=== PATIENT | female | born 1940 | race Hispanic/Latino ===

== ENCOUNTER 2016-12-24 09:00 | Inpatient (IN) | payer MEDICARE, OTHER ==
[2016-12-24 09:01] VITALS: BMI 31.8
[2016-12-24 09:29] LABS: BASO % 0.4 % (0.0-2.0); EOS % 0.5 % (0.0-4.0); HEMATOCRIT 38.9 % (34.0-47.0); LYMPH # 1.3 K/uL (1.0-4.3); LYMPH % 21.8 % (20.0-40.0); MEAN CELL VOLUME 90.2 fL (81.0-99.0); MEAN CORPUSCULAR HEMOGLOBIN 29.8 pg (27.0-31.0); MEAN PLATELET VOLUME 7.9 fL (7.2-11.7); MONO # 0.4 K/uL (0.0-0.8); MONO % 6.2 % (0.0-10.0); RED CELL DISTRIBUTION WIDTH 14.8 % (11.5-14.5); WHITE BLOOD COUNT 5.9 K/uL (4.8-10.8)
--- NOTE | 2016-12-24 09:35 | C.PDOC ---
History Of Present Illness 76 yr old female, accompanied in by daughter, presents to [facility] ER with complaints of feeling dizzy and off balance since 3am today. Patient states its associated with mild chest discomfort. Reports the dizziness is better when she sits still and made worse with movement. Patient denies previous history of similar symptoms, fever, chills, SOB, nausea, vomiting, focal weakness or numbness. Time Seen by Provider: 12/24/16 09:07 Chief Complaint (Nursing): Chest Pain History Per: Patient History/Exam Limitations: no limitations Onset/Duration Of Symptoms: Sudden Onset (3am today) Current Symptoms Are (Timing): Still Present Past Medical History Reviewed: Historical Data, Nursing Documentation, Vital Signs Vital Signs: Last Vital Signs Temp 97.7 F 12/24/16 14:50 Pulse 89 12/24/16 14:50 Resp 20 12/24/16 14:50 BP 142/80 12/24/16 14:50 Pulse Ox 97 12/24/16 14:50 - Medical History PMH: Anxiety, Arthritis, Asthma, Bronchitis, CHF, Gastritis, HTN, Hypercholesterolemia, Hypothyroidism, Peripheral Edema Surgical History: Appendectomy - [facility] Procedures ESOPHAGOGASTRODUODENOSCOPY [EGD] W/CLOSED BIOPSY (07/26/14) EXTRACTION OF TOE NAIL, EXTERNAL APPROACH (10/24/15) Family History: States: No Known Family Hx - Social History Hx Tobacco Use: No Hx Alcohol Use: No Hx Substance Use: No - Immunization History Hx Tetanus Toxoid Vaccination: No Hx Influenza Vaccination: No Hx Pneumococcal Vaccination: No Review Of Systems Except As Marked, All Systems Reviewed And Found Negative. Constitutional: Negative for: Fever, Chills Cardiovascular: Positive for: Other ((+) Mild chest discomfort) Respiratory: Negative for: Shortness of Breath Gastrointestinal: Negative for: Nausea, Vomiting Neurological: Positive for: Dizziness. Negative for: Weakness, Numbness Physical Exam - Physical Exam Appears: Non-toxic, No Acute Distress Skin: Warm, Dry, No Rash Head: Atraumatic, Normacephalic Eye(s): bilateral: PERRL, Other (Horizontal nystagmus.) Oral Mucosa: Moist Neck: Normal, Normal ROM, Supple Cardiovascular: Rhythm Regular, No Murmur Respiratory: Normal Breath Sounds, No Rales, No Rhonchi, No Stridor, No Wheezing Neurological/Psych: Oriented x3, Normal Speech, Normal Motor ED Course And Treatment - Laboratory Results Result Diagrams: 12/24/16 09:24 12/24/16 09:24 ECG: Interpreted By Me, Viewed By Me ECG Rhythm: Sinus Rhythm ECG Interpretation: Normal Interpretation Of ECG: RBBB. Q wave in leave [address]/T wave abnormalities. Rate From EC (BPM) O2 Sat by Pulse Oximetry: 100 (RA) Pulse Ox Interpretation: Normal - Other Rad CXR X-Ray: Viewed By Me, Read By Radiologist Interpretation: PROCEDURE: CHEST RADIOGRAPH, 1 VIEW. HISTORY: chest pain. COMPARISON: 03/17/2016. FINDINGS: LUNGS: Shallow lung volumes - crowd the bronchovascular marking appearance. No consolidation suggested. PLEURA: No pneumothorax or pleural fluid seen. CARDIOVASCULAR: Top-normal heart size. Carotid bronchovascular marking appearance per shallow lung volumes. OSSEOUS STRUCTURES: Thoracic spondylosis. Bilateral shoulder arthrosis. VISUALIZED UPPER ABDOMEN: Normal. OTHER FINDINGS: None. IMPRESSION: Shallow lung volumes. Allowing for this no suspect pulmonary venous congestion believed present. No consolidation suggested - CT Scan/US CT - Head Other Rad Studies (CT/US): Read By Radiologist, Radiology Report Reviewed CT/US Interpretation: PROCEDURE: CT HEAD WITHOUT CONTRAST. HISTORY: dizziness. COMPARISON: 10/08/2014 no evidence of acute infarct. TECHNIQUE: Axial computed tomography images were obtained through the head/brain without intravenous contrast. Radiation dose: Total exam DLP = 919.83 mGy-cm. This CT exam was performed using one or more of the following dose reduction techniques: Automated exposure control, adjustment of the mA and/or kV according to patient size, and/or use of iterative reconstruction technique. FINDINGS: HEMORRHAGE: No intracranial hemorrhage. BRAIN: No mass effect or edema. Mild diffuse age-appropriate cerebral atrophy. Mild periventricular white matter lucency with patchy and confluent foci of deep and subcortical white matter lucency consistent with age related microvascular ischemic change. No significant change from prior examination. VENTRICLES: Unremarkable. No hydrocephalus. CALVARIUM: Unremarkable. PARANASAL SINUSES: Unremarkable as visualized. No significant inflammatory changes. MASTOID AIR CELLS: Unremarkable as visualized. No inflammatory changes. OTHER FINDINGS: None. IMPRESSION: No intracranial mass, hemorrhage or evidence of acute infarct. Age -appropriate involutional change. Medical Decision Making Medical Decision Making: IMPRESSION: PLAN: * CT - Head * CXR * EKG * Troponin * CBC * CMP * BNP * Urinalysis * Meclizine PO * Pepcid IVP NOTE: * DR. Calixto at bedside to evaluate patient and would like patient to be placed in Telemetry Obs. Disposition Discussed With : Joe Calixto Doctor Will See Patient In The: Hospital Counseled Patient/Family Regarding: Studies Performed, Diagnosis - Disposition Disposition: HOSPITALIZED Disposition Time: 12:38 Condition: FAIR - Clinical Impression Clinical Impression: Ataxia, Dizziness - Scribe Statement The provider has reviewed the documentation as recorded by the Cookie Bliss Provider Attestation: All medical record entries made by the Cookie were at my direction and personally dictated by me. I have reviewed the chart and agree that the record accurately reflects my personal performance of the history, physical exam, medical decision making, and the department course for this patient. I have also personally directed, reviewed, and agree with the discharge instructions and disposition.
[2016-12-24 09:39] LABS: ALB/GLOB RATIO 1.6 (1.0-2.1); ALKALINE PHOSPHATASE 74 U/L (38-126); ALT/SGPT 30 U/L (9-52); AST/SGOT 22 U/L (14-36); BLOOD UREA NITROGEN 16 mg/dL (7-17); CALCIUM 8.3 mg/dl (8.6-10.4); CARBON DIOXIDE 26 mmol/L (22-30); CHLORIDE 102 mmol/L (98-107); GFR AFRICAN-AMERICAN > 60; GLUCOSE,RANDOM 92 mg/dL (65-105); POTASSIUM 4.2 mmol/L (3.6-5.2); SODIUM 136 mmol/L (132-148); TOTAL PROTEIN 6.6 g/dL (6.3-8.3)
--- NOTE | 2016-12-24 10:02 | RAD ---
PROCEDURE: CHEST RADIOGRAPH, 1 VIEW HISTORY: chest pain COMPARISON: 03/17/2016 FINDINGS: LUNGS: Shallow lung volumes - crowd the bronchovascular marking appearance. No consolidation suggested PLEURA: No pneumothorax or pleural fluid seen. CARDIOVASCULAR: Top-normal heart size. Carotid bronchovascular marking appearance per shallow lung volumes. OSSEOUS STRUCTURES: Thoracic spondylosis. Bilateral shoulder arthrosis. VISUALIZED UPPER ABDOMEN: Normal. OTHER FINDINGS: None. IMPRESSION: Shallow lung volumes. Allowing for this no suspect pulmonary venous congestion believed present. No consolidation suggested
--- NOTE | 2016-12-24 10:19 | CT ---
PROCEDURE: CT HEAD WITHOUT CONTRAST. HISTORY: dizziness COMPARISON: 10/08/2014 no evidence of acute infarct. TECHNIQUE: Axial computed tomography images were obtained through the head/brain without intravenous contrast. Radiation dose: Total exam DLP = 919.83 mGy-cm. This CT exam was performed using one or more of the following dose reduction techniques: Automated exposure control, adjustment of the mA and/or kV according to patient size, and/or use of iterative reconstruction technique. FINDINGS: HEMORRHAGE: No intracranial hemorrhage. BRAIN: No mass effect or edema. Mild diffuse age-appropriate cerebral atrophy. Mild periventricular white matter lucency with patchy and confluent foci of deep and subcortical white matter lucency consistent with age related microvascular ischemic change. No significant change from prior examination. VENTRICLES: Unremarkable. No hydrocephalus. CALVARIUM: Unremarkable. PARANASAL SINUSES: Unremarkable as visualized. No significant inflammatory changes. MASTOID AIR CELLS: Unremarkable as visualized. No inflammatory changes. OTHER FINDINGS: None. IMPRESSION: No intracranial mass, hemorrhage or evidence of acute infarct. Age-appropriate involutional change.
[2016-12-24 12:37] LABS: URINE BILIRUBIN NEGATIVE (NEGATIVE); URINE BLOOD NEGATIVE (NEGATIVE); URINE COLOR Yellow (YELLOW); URINE GLUCOSE (UA) NORMAL (Normal); URINE KETONE NEGATIVE (NEGATIVE); URINE LEUKOCYTE ESTERASE NEG Leu/uL (Negative); URINE PROTEIN NEGATIVE (NEGATIVE); URINE UROBILINOGEN NORMAL mg/dL (0.2-1.0); WBC URINE 1 /hpf (0-5)
[2016-12-24] MEDS: Enoxaparin 40 mg Syringe SC SCH (13:55)
[2016-12-24] MEDS: Pantoprazole 40 mg EC Tab PO SCH (13:56)
--- NOTE | 2016-12-24 16:13 | CP.PCM.CON ---
History of Present Illness - History of Present Illness History of Present Illness: Mrs. Virk is a 76-year-old woman with a past medical history of anxiety, depression, CHF, HTN, dyslipidemia, hypothyroidism, gastritis, who states that last night at around 3 AM, she got up to go to the bathroom, when she developed the sensation of dizziness and then felt that she had instability in her gait. She had difficulty with balance, but did not notice that she was falling to any one side. She did not have a fall. This incident lasted for several minutes and then seemed to subside. However, she continues to feel that she is not quite her normal self when she is walking even today. Review of Systems - Review of Systems All systems: reviewed and no additional remarkable complaints except Past Patient History - Infectious Disease Hx of Infectious Diseases: None - Tetanus Immunizations Tetanus Immunization: Unknown - Past Medical History & Family History Past Medical History?: Yes - Past Social History Smoking Status: Never Smoked - CARDIAC Hx Congestive Heart Failure: Yes Hx Hypercholesterolemia: Yes Hx Hypertension: Yes Hx Peripheral Edema: Yes - PULMONARY Hx Asthma: Yes Hx Bronchitis: Yes - NEUROLOGICAL Hx Neurological Disorder: No - HEENT Hx Cataracts: No - RENAL Hx Chronic Kidney Disease: No - ENDOCRINE/METABOLIC Hx Hypothyroidism: Yes - HEMATOLOGICAL/ONCOLOGICAL Hx Blood Disorders: No - INTEGUMENTARY Hx Dermatological Problems: No - MUSCULOSKELETAL/RHEUMATOLOGICAL Hx Arthritis: Yes - GASTROINTESTINAL Hx Gastritis: Yes - GENITOURINARY/GYNECOLOGICAL Hx Genitourinary Disorders: Yes Hx Incontinence: Yes - PSYCHIATRIC Hx Anxiety: Yes Hx Substance Use: No - SURGICAL HISTORY Hx Appendectomy: Yes - ANESTHESIA Hx Anesthesia: Yes Hx Anesthesia Reactions: Yes (SLUGGISH TO WAKE UP) Hx Malignant Hyperthermia: No Has any member of the family had a problem w/ anesthesia?: No Meds Allergies/Adverse Reactions: Allergies Allergy/AdvReac Type Severity Reaction Status Date / Time azithromycin Allergy Severe SHORTNESS Verified 03/14/16 22:10 OF BREATH clarithromycin [From Biaxin] Allergy SHORTNESS Verified 03/14/16 22:10 OF BREATH Penicillins Allergy SHORTNESS Verified 03/14/16 22:10 OF BREATH - Medications Medications: Current Medications Aspirin (Ecotrin) 81 mg PO DAILY [facility] Last Admin: 12/24/16 13:56 Dose: 81 mg Carvedilol (Coreg) 6.25 mg PO BID [facility] Enoxaparin Sodium (Lovenox) 40 mg SC DAILY [facility] Last Admin: 12/24/16 13:55 Dose: 40 mg Furosemide (Lasix) 20 mg PO DAILY [facility] Last Admin: 12/24/16 13:56 Dose: Not Given Levothyroxine Sodium (Synthroid) 150 mcg PO DAILY@0630 [facility] Lorazepam (Ativan) 0.5 mg PO BID PRN PRN Reason: Agitation Losartan Potassium (Cozaar) 25 mg PO DAILY [facility] Last Admin: 12/24/16 14:55 Dose: 25 mg Meclizine HCl (Antivert) 12.5 mg PO BID [facility] Nortriptyline HCl (Pamelor) 25 mg PO DAILY [facility] Last Admin: 12/24/16 13:56 Dose: 25 mg Pantoprazole Sodium (Protonix Ec Tab) 40 mg PO DAILY [facility] Last Admin: 12/24/16 13:56 Dose: Not Given Physical Exam - Constitutional Appears: Well - Head Exam Head Exam: ATRAUMATIC, NORMAL INSPECTION, NORMOCEPHALIC - Eye Exam Eye Exam: EOMI, Normal appearance, PERRL - ENT Exam ENT Exam: Mucous Membranes Moist, Normal Exam - Neck Exam Neck exam: Positive for: Normal Inspection - Cardiovascular Exam Cardiovascular Exam: REGULAR RHYTHM, +S1, +S2 - GI/Abdominal Exam GI & Abdominal Exam: Normal Bowel Sounds, Soft. absent: Tenderness - Rectal Exam Rectal Exam: Deferred - Extremities Exam Extremities exam: Positive for: normal inspection - Neurological Exam Neurological exam: Abnormal Gait, Alert, CN II-XII Intact, Oriented x3, Reflexes Normal - Expanded Neurological Exam Expanded Patient oriented to: person, place, time Cranial nerves: EOM's Intact: Normal, Facial Palsey w/o Forehead Movement: Normal, Nystagmus: Abnormal Right (beating slightly) Ataxia: No (has a wide-based gait) Cerebellar Function: Finger to Nose: Normal, Heel to [place]: Normal Upper motor neuron: Babinski Sign: Normal Sensory exam: Lower Extremity Light Touch: Normal, Lower Extremity Pin Prick: Normal, Upper Extremity Light Touch: Normal, Upper Extremity Pin Prick: Normal Neuro motor strength exam: Left Upper Extremity: 5, Right Upper Extremity: 5, Left Lower Extremity: 5, Right Lower Extremity: 5 DTR: Achilles Tendon Left: 2+, Achilles Tendon Right: 2+, Bicep Left: 2+, Bicep Right: 2+, Brachioradialis Left: 2+, Brachioradialis Right: 2+, Patellar Left: 2 +, Patellar Right: 2+, Tricep Left: 2+, Tricep Right: 2+ - Psychiatric Exam Psychiatric exam: Normal Affect, Normal Mood - Skin Skin Exam: Dry, Intact, Normal Color, Warm Results - Vital Signs Recent Vital Signs: Last Vital Signs Temp 97.9 F 12/24/16 15:32 Pulse 84 12/24/16 15:32 Resp 20 12/24/16 15:32 BP 131/80 12/24/16 15:32 Pulse Ox 100 12/24/16 15:47 - Labs Result Diagrams: 12/24/16 09:24 12/24/16 09:24 Labs: Laboratory Results - last 24 hr 12/24/16 12/24/16 12/24/16 09:24 09:24 12:18 WBC 5.9 RBC 4.31 Hgb 12.8 Hct 38.9 MCV 90.2 MCH 29.8 MCHC 33.0 RDW 14.8 H Plt Count 231 MPV 7.9 Neut % (Auto) 71.1 Lymph % (Auto) 21.8 [place] % (Auto) 6.2 Eos % (Auto) 0.5 Baso % (Auto) 0.4 Neut # 4.2 Lymph # 1.3 [place] # 0.4 Eos # 0.0 Baso # 0.0 Sodium 136 Potassium 4.2 Chloride 102 Carbon Dioxide 26 Anion Gap 12 BUN 16 Creatinine 0.8 Est GFR ( Amer) > 60 Est GFR (Non-Af Amer) > 60 Random Glucose 92 Calcium 8.3 L Total Bilirubin 1.0 AST 22 ALT 30 Alkaline Phosphatase 74 Troponin I < 0.0120 NT-Pro-B Natriuret Pep 150 Total Protein 6.6 Albumin 4.1 Globulin 2.5 Albumin/Globulin Ratio 1.6 Urine Color Yellow Urine Clarity Clear Urine pH 7.0 Ur Specific [place] 1.011 Urine Protein Negative Urine Glucose (UA) Normal Urine Ketones Negative Urine Blood Negative Urine Nitrate Negative Urine Bilirubin Negative Urine Urobilinogen Normal Ur Leukocyte Esterase Neg Urine WBC (Auto) 1 Ur Squamous Epith Cells 1 - Imaging and Cardiology CT scan - head Status: Image reviewed by me, Report reviewed by me (No acute findings. ) Assessment & Plan (1) Gait abnormality Assessment and Plan: This could be mechanical due to her chronic lower extremity weakness and pain, but may also be central in origin due to a cerebellar lesion. The patient cannot tolerate MRI due to severe clausterphobia. She is allergic to contrast, so a CTA is not possible right now. I recommend the followin. Telemetry 2. Repeat CT head in the AM 3. Continue aspirin 81 mg daily 4. PT/OT eval and treat 5. Echochardiogram with bubble study 6. DVT Px 7. Fluids with NS at 75 mL/hr 8. Check lipids, HbA1c, TSH, B12, folate, vitamin D levels 9. Start Lipitor to maintain LDL below 70 10. Case management consult Thank you. Status: Acute Priority: High
--- NOTE | 2016-12-24 17:07 | CP.PCM.HP ---
History of Present Illness - History of Present Illness History of Present Illness: 76 y/o lady with hx of anxiety, depression, multiple drugs intolerance,CAD, severe OA,venous insufficiency debility, COPD, Hypothyroid. Presented in ER with the c/o that she had same problems with her balance and not able to walk with out assistance. The nature of this condition at the present is unclear could be a mechanical problem a presyncope or a cerebellar condition. Present on Admission - Present on Admission Any Indicators Present on Admission: No Review of Systems - Constitutional Constitutional: As Per HPI - EENT Eyes: As Per HPI - Cardiovascular Cardiovascular: As Per HPI - Respiratory Respiratory: As Per HPI - Gastrointestinal Gastrointestinal: As Per HPI - Musculoskeletal Musculoskeletal: As Per HPI - Integumentary Integumentary: As Per HPI - Neurological Neurological: As Per HPI - Psychiatric Psychiatric: As Per HPI Past Patient History - Infectious Disease Hx of Infectious Diseases: None - Tetanus Immunizations Tetanus Immunization: Unknown - Past Medical History & Family History Past Medical History?: Yes - Past Social History Smoking Status: Never Smoked - CARDIAC Hx Congestive Heart Failure: Yes Hx Hypercholesterolemia: Yes Hx Hypertension: Yes Hx Peripheral Edema: Yes - PULMONARY Hx Asthma: Yes Hx Bronchitis: Yes - NEUROLOGICAL Hx Neurological Disorder: No - HEENT Hx Cataracts: No - RENAL Hx Chronic Kidney Disease: No - ENDOCRINE/METABOLIC Hx Hypothyroidism: Yes - HEMATOLOGICAL/ONCOLOGICAL Hx Blood Disorders: No - INTEGUMENTARY Hx Dermatological Problems: No - MUSCULOSKELETAL/RHEUMATOLOGICAL Hx Arthritis: Yes - GASTROINTESTINAL Hx Gastritis: Yes - GENITOURINARY/GYNECOLOGICAL Hx Genitourinary Disorders: Yes Hx Incontinence: Yes - PSYCHIATRIC Hx Anxiety: Yes Hx Substance Use: No - SURGICAL HISTORY Hx Appendectomy: Yes - ANESTHESIA Hx Anesthesia: Yes Hx Anesthesia Reactions: Yes (SLUGGISH TO WAKE UP) Hx Malignant Hyperthermia: No Has any member of the family had a problem w/ anesthesia?: No Meds Allergies/Adverse Reactions: Allergies Allergy/AdvReac Type Severity Reaction Status Date / Time azithromycin Allergy Severe SHORTNESS Verified 03/14/16 22:10 OF BREATH clarithromycin [From Biaxin] Allergy SHORTNESS Verified 03/14/16 22:10 OF BREATH Penicillins Allergy SHORTNESS Verified 03/14/16 22:10 OF BREATH Physical Exam - Constitutional Appears: Chronically Ill - Head Exam Head Exam: ATRAUMATIC, NORMAL INSPECTION, NORMOCEPHALIC - Eye Exam Eye Exam: Normal appearance - ENT Exam ENT Exam: Mucous Membranes Moist - Neck Exam Neck exam: Positive for: Full Rom, Normal Inspection - Respiratory Exam Respiratory Exam: Clear to Auscultation Bilateral - Cardiovascular Exam Cardiovascular Exam: REGULAR RHYTHM, +S1, +S2 - GI/Abdominal Exam GI & Abdominal Exam: Normal Bowel Sounds, Soft - Neurological Exam Neurological exam: Abnormal Gait, Alert, CN II-XII Intact, Oriented x3 - Psychiatric Exam Psychiatric exam: Anxious, Depressed - Skin Skin Exam: Normal Color Results - Vital Signs Recent Vital Signs: Last Vital Signs Temp 97.9 F 12/24/16 15:32 Pulse 84 12/24/16 15:32 Resp 18 12/24/16 15:32 BP 131/80 12/24/16 15:32 Pulse Ox 100 12/24/16 15:47 - Labs Result Diagrams: 12/24/16 09:24 12/24/16 09:24 Labs: Laboratory Results - last 24 hr 12/24/16 12/24/16 12/24/16 09:24 09:24 12:18 WBC 5.9 RBC 4.31 Hgb 12.8 Hct 38.9 MCV 90.2 MCH 29.8 MCHC 33.0 RDW 14.8 H Plt Count 231 MPV 7.9 Neut % (Auto) 71.1 Lymph % (Auto) 21.8 [place] % (Auto) 6.2 Eos % (Auto) 0.5 Baso % (Auto) 0.4 Neut # 4.2 Lymph # 1.3 [place] # 0.4 Eos # 0.0 Baso # 0.0 Sodium 136 Potassium 4.2 Chloride 102 Carbon Dioxide 26 Anion Gap 12 BUN 16 Creatinine 0.8 Est GFR ( Amer) > 60 Est GFR (Non-Af Amer) > 60 Random Glucose 92 Calcium 8.3 L Total Bilirubin 1.0 AST 22 ALT 30 Alkaline Phosphatase 74 Troponin I < 0.0120 NT-Pro-B Natriuret Pep 150 Total Protein 6.6 Albumin 4.1 Globulin 2.5 Albumin/Globulin Ratio 1.6 TSH 3rd Generation Urine Color Yellow Urine Clarity Clear Urine pH 7.0 Ur Specific [place] 1.011 Urine Protein Negative Urine Glucose (UA) Normal Urine Ketones Negative Urine Blood Negative Urine Nitrate Negative Urine Bilirubin Negative Urine Urobilinogen Normal Ur Leukocyte Esterase Neg Urine WBC (Auto) 1 Ur Squamous Epith Cells 1 12/24/16 15:13 WBC RBC Hgb Hct MCV MCH MCHC RDW Plt Count MPV Neut % (Auto) Lymph % (Auto) [place] % (Auto) Eos % (Auto) Baso % (Auto) Neut # Lymph # [place] # Eos # Baso # Sodium Potassium Chloride Carbon Dioxide Anion Gap BUN Creatinine Est GFR ( Amer) Est GFR (Non-Af Amer) Random Glucose Calcium Total Bilirubin AST ALT Alkaline Phosphatase Troponin I NT-Pro-B Natriuret Pep Total Protein Albumin Globulin Albumin/Globulin Ratio TSH 3rd Generation 2.35 Urine Color Urine Clarity Urine pH Ur Specific [place] Urine Protein Urine Glucose (UA) Urine Ketones Urine Blood Urine Nitrate Urine Bilirubin Urine Urobilinogen Ur Leukocyte Esterase Urine WBC (Auto) Ur Squamous Epith Cells Assessment & Plan (1) Ataxia Status: Acute (2) Dizziness Status: Acute (3) Gait abnormality Status: Acute Priority: High (4) Anxiety Status: Chronic (5) Arthritis Status: Chronic (6) Hypothyroid Status: Chronic (7) Venous insufficiency Status: Chronic (8) Pre-syncope Status: Acute - Assessment and Plan (Free Text) Plan: As per orders
[2016-12-24 20:19] LABS: CHOLESTEROL 171 mg/dL (0-199); MAGNESIUM 1.9 mg/dL (1.6-2.3); PHOSPHOROUS 3.7 mg/dL (2.5-4.5)
[2016-12-24 21:24] LABS: FOLATE > 20.0 ng/mL
[2016-12-24 22:19] LABS: INR 1.2
[2016-12-25] MEDS: Levothyroxine 150 MCG TAB PO SCH (05:54)
[2016-12-25 07:31] LABS: LYMPH # 1.5 K/uL (1.0-4.3); MEAN PLATELET VOLUME 8.2 fL (7.2-11.7); MONO # 0.4 K/uL (0.0-0.8); RED CELL DISTRIBUTION WIDTH 14.8 % (11.5-14.5); WHITE BLOOD COUNT 5.3 K/uL (4.8-10.8)
[2016-12-25 07:41] LABS: BASO % 0.4 % (0.0-2.0); EOS % 0.6 % (0.0-4.0); HEMATOCRIT 37.4 % (34.0-47.0); LYMPH % 28.2 % (20.0-40.0); MEAN CELL VOLUME 89.9 fL (81.0-99.0); MEAN CORPUSCULAR HEMOGLOBIN 30.5 pg (27.0-31.0); MEAN CORPUSCULAR HGB CONC 33.9 g/dL (33.0-37.0); MONO % 7.7 % (0.0-10.0); NRBC % 0.1 % (0.0-2.0)
[2016-12-25 08:10] LABS: BLOOD UREA NITROGEN 14 mg/dL (7-17); CALCIUM 8.3 mg/dl (8.6-10.4); CARBON DIOXIDE 24 mmol/L (22-30); CHLORIDE 104 mmol/L (98-107); GFR AFRICAN-AMERICAN > 60; GLUCOSE,RANDOM 92 mg/dL (65-105); POTASSIUM 3.8 mmol/L (3.6-5.2); SODIUM 137 mmol/L (132-148)
--- NOTE | 2016-12-25 08:33 | CP.PCM.PN ---
Subjective - Date & Time of Evaluation Date of Evaluation: 12/25/16 Time of Evaluation: 08:29 - Subjective Subjective: Ms. Virk was seen and examined at the bedside. She is alert, oriented in all spheres. She denies any dizziness, lightheadedness, numbness, nausea, vomiting, or headache. She states of still feeling unsteady since admission. Encourage to use call staff for ambulation to prevent any falls while in the hospital. There was no untoward events overnight. Objective - Vital Signs/Intake and Output Vital Signs (last 24 hours): Temp Pulse Resp BP Pulse Ox 98.0 F 77 18 147/85 96 12/25/16 07:45 12/25/16 07:45 12/25/16 07:45 12/25/16 07:45 12/25/16 07:45 Intake and Output: 12/25/16 12/25/16 06:59 18:59 Intake Total 300 Balance 300 - Medications Medications: Current Medications Aspirin (Ecotrin) 81 mg PO DAILY [facility] Last Admin: 12/24/16 13:56 Dose: 81 mg Carvedilol (Coreg) 6.25 mg PO BID [facility] Last Admin: 12/24/16 17:51 Dose: 6.25 mg Enoxaparin Sodium (Lovenox) 40 mg SC DAILY [facility] Last Admin: 12/24/16 13:55 Dose: 40 mg Furosemide (Lasix) 20 mg PO DAILY [facility] Last Admin: 12/24/16 13:56 Dose: Not Given Levothyroxine Sodium (Synthroid) 150 mcg PO DAILY@0630 [facility] Last Admin: 12/25/16 05:54 Dose: 150 mcg Lorazepam (Ativan) 0.5 mg PO BID PRN PRN Reason: Agitation Last Admin: 12/24/16 21:50 Dose: 0.5 mg Losartan Potassium (Cozaar) 25 mg PO DAILY [facility] Last Admin: 12/24/16 14:55 Dose: 25 mg Meclizine HCl (Antivert) 12.5 mg PO BID [facility] Last Admin: 12/24/16 17:51 Dose: 12.5 mg Nortriptyline HCl (Pamelor) 25 mg PO DAILY [facility] Last Admin: 12/24/16 13:56 Dose: 25 mg Pantoprazole Sodium (Protonix Ec Tab) 40 mg PO DAILY [facility] Last Admin: 12/24/16 13:56 Dose: Not Given - Labs Labs: 12/25/16 07:23 12/25/16 07:23 PT 13.7 SECONDS (9.7-12.2) H 12/24/16 22:00 INR 1.2 12/24/16 22:00 APTT 36 SECONDS (21-34) H 12/24/16 22:00 - Constitutional Appears: No Acute Distress - Head Exam Head Exam: ATRAUMATIC - Neurological Exam Neurological Exam: Alert, Awake, CN II-XII Intact, Oriented x3 Neuro motor strength exam: Left Upper Extremity: 5, Right Upper Extremity: 5, Left Lower Extremity: 4, Right Lower Extremity: 4 Additional comments: Neurological improved from previous examination. Sensation remains intact. Assessment and Plan (1) Gait abnormality Assessment & Plan: Case discussed with Dr. Pruitt, follow up repeat CT of head and echocardiogram. Continue current medical, physical, and occupational therapies. Status: Acute
--- NOTE | 2016-12-25 09:12 | CT ---
PROCEDURE: CT HEAD WITHOUT CONTRAST. HISTORY: gait instability COMPARISON: None available. TECHNIQUE: Axial computed tomography images were obtained through the head/brain without intravenous contrast. Radiation dose: Total exam DLP = mGy-cm. This CT exam was performed using one or more of the following dose reduction techniques: Automated exposure control, adjustment of the mA and/or kV according to patient size, and/or use of iterative reconstruction technique. FINDINGS: HEMORRHAGE: No intracranial hemorrhage. BRAIN: Mild age related neuro degenerative changes are reiterated with preservation of the bashir and white matter interface throughout. Posterior fossa contents remain unremarkable. VENTRICLES: Unremarkable. No hydrocephalus. CALVARIUM: Unremarkable. PARANASAL SINUSES: Unremarkable as visualized. No significant inflammatory changes. MASTOID AIR CELLS: Unremarkable as visualized. No inflammatory changes. OTHER FINDINGS: None. IMPRESSION: Stable age related neuro degenerative changes are appreciated. No definite acute intracranial findings by standard CT criteria. Follow-up CT or MRI are available if clinically warranted.
[2016-12-25] MEDS: Pantoprazole 40 mg EC Tab PO SCH (10:29)
[2016-12-25] MEDS: Enoxaparin 40 mg Syringe SC SCH (10:30)
--- NOTE | 2016-12-25 11:10 | CARD ---
APPROVED REPORT EKG Measurement Heart [id number] <Conclusion> Normal sinus rhythm Right bundle branch block Inferior infarct, age undetermined Abnormal ECG
--- NOTE | 2016-12-25 14:13 | CON ---
CARDIOLOGY CONSULTATION HISTORY OF PRESENT ILLNESS: A 76-year-old female who was brought in with a history of dizziness, unsteady gait and near syncope. She is known to me with a history of hypertension and possible CAD, LV systolic dysfunction. She has been maintained on Lasix, Coreg and Cozaar. She was on PRETTY inhibitor, Vasotec that was discontinued because of the cough and wheezing. She was usual state of health up until 3 weeks ago when she had sustained fracture of the left foot, seen by Dr. Blas and being treated for that. Day before, she had some unsteady gait, felt dizzy and subsequently came to the emergency room. PERSONAL HISTORY: Does not smoke, does not drink. ALLERGIES: SHE IS ALLERGIC TO PENICILLIN AND QUINOLONES. PAST MEDICAL HISTORY: Admitted for congestive heart failure, history of appendectomy and hysterectomy. FAMILY HISTORY: Negative for diabetes and blood pressure. Nonsmoker. MEDICATIONS AT HOME: Include Lasix 20 mg, Synthroid, Pamelor, Cozaar, Coreg 6.25 twice a day, nitrates. REVIEW OF SYSTEMS: Generalized weakness is noted. No fever. No chills. No cough. She does have occasional chest pains, which are nonexertional. Dyspnea on minimal exertion. Edema is noted. Varicose veins. No peptic ulcer disease. No bleeding disorders. Negative for hematuria. No past history of CVA. History of depression is noted. Severe arthritis involving multiple joints. More so in the knees. Peripheral vascular system: No claudication, although she does not ambulate much. She has varicosities. Edema. PHYSICAL EXAMINATION: GENERAL: Shows an elderly female, who is conscious, alert, appears mildly depressed, but in no acute distress. VITAL SIGNS: Blood pressure is 142/80; heart rate of 88, sinus on the telemetry; respiratory rate of 20; temperature of 97.7; O2 sat was 97% on room air. HEENT: Head is normocephalic. Eyes; no pallor, no icterus. Mouth; no exudates. NECK: No thyroid enlargement. Soft bilateral carotid bruit. LUNGS: Clear to auscultation bilaterally. HEART: PMI is not localized. S1 and S2 are normal. II/ holosystolic murmur in the mitral area. EXTREMITIES: 2+ edema is noted. Superficial varicosities are noted. Distal pulses are feeble, but palpable. NEUROLOGIC: Awake, alert, oriented x3. No focal sign. LABORATORY DATA: Lab data shows hemoglobin of 12.8, BUN is 16, potassium is 4.2, EKG is sinus rhythm. Right bundle-branch block. Nonspecific ST-T changes. This is not available for me to review. CT of the head was unremarkable. Chest x-ray did not show any acute changes. ASSESSMENT: A 76-year-old female with a history of hypertension, congestive heart failure. At this point, medical therapy is to be continued. We will obtain 24-hour Holter monitor. Rule out any underlying cardiac arrhythmias, which I doubt. We will obtain the previous echocardiogram report. I thank you kindly. We will follow as needed. Elvis Forbes MD
--- NOTE | 2016-12-25 17:52 | VASCLAB ---
PROCEDURE: Lower Extremity Venous Duplex Exam. HISTORY: r/o DVT PRIORS: None. TECHNIQUE: Bilateral common femoral, femoral, popliteal and posterior tibial, peroneal and great saphenous veins were evaluated. Flow was assessed with color Doppler, compressibility, assessment of phasic flow and augmentation response. Report prepared by Sourav Leary, ALEXEI, RVT FINDINGS: RIGHT: 1. Common Femoral Vein: 1.1. Compressibility - Fully compressible: Thrombus - None : Flow - Phasic: Augmentation -Normal: Reflux - None. 2. Femoral Vein: 2.1. Compressibility - Fully compressible: Thrombus - None : Flow - Phasic: Augmentation -Normal: Reflux - None. 3. Popliteal Vein: 3.1. Compressibility - Fully compressible: Thrombus - None : Flow - Phasic: Augmentation -Normal: Reflux - None. 4. Posterior Tibial Vein: 4.1. Compressibility - Fully compressible: Thrombus - None: Flow - Phasic: Augmentation -Normal: Reflux - None. 5. Peroneal Vein: 5.1. Compressibility - Fully compressible: Thrombus - None: Flow - Phasic: Augmentation -Normal: Reflux - None. 6. Great Saphenous Vein: 6.1. Compressibility - Fully compressible: Thrombus - None: Flow - Phasic: Augmentation - Normal: Reflux - None. LEFT: 1. Common Femoral Vein: 1.1. Compressibility - Fully compressible: Thrombus - None: Flow - Phasic: Augmentation -Normal: Reflux - None. 2. Femoral Vein: 2.1. Compressibility - Fully compressible: Thrombus - None: Flow - Phasic: Augmentation -Normal: Reflux - None. 3. Popliteal Vein: 3.1. Compressibility - Fully compressible: Thrombus - None : Flow - Phasic: Augmentation -Normal: Reflux - None. 4. Posterior Tibial Vein: 4.1. Compressibility - Fully compressible: Thrombus - None: Flow - Phasic: Augmentation -Normal: Reflux - None. 5. Peroneal Vein: 5.1. Compressibility - Fully compressible: Thrombus - None: Flow - Phasic: Augmentation -Normal: Reflux - None. 6. Great Saphenous Vein: 6.1. Compressibility - Fully compressible: Thrombus - None: Flow - Phasic: Augmentation - Normal: Reflux - Severe. OTHER FINDINGS: Right: None significant. Left: None significant. IMPRESSION: Right: No evidence of deep or superficial vein thrombosis of the right lower extremity. Normal valve function noted of the right side. Left: No evidence of deep or superficial vein thrombosis of the left lower extremity. Severe valvular incompetence of the left greater saphenous vein. Otherwise, normal valve function noted of the left side.
--- NOTE | 2016-12-25 18:30 | CP.PCM.PN ---
Subjective - Date & Time of Evaluation Date of Evaluation: 12/25/16 Time of Evaluation: 18:31 - Subjective Subjective: Patient still c/o vertigo with unsteady balance. The cardiac w/u still in place. Will admit for further Rx and Dx. Objective - Vital Signs/Intake and Output Vital Signs (last 24 hours): Temp Pulse Resp BP Pulse Ox 97.9 F 80 22 156/88 H 96 12/25/16 15:23 12/25/16 15:23 12/25/16 15:23 12/25/16 15:23 12/25/16 15:23 Intake and Output: 12/25/16 12/25/16 11:59 23:59 Intake Total 500 Balance 500 - Medications Medications: Current Medications Aspirin (Ecotrin) 81 mg PO DAILY COUNTS INCLUDE 234 BEDS AT THE [facility] Last Admin: 12/25/16 10:26 Dose: 81 mg Carvedilol (Coreg) 6.25 mg PO BID COUNTS INCLUDE 234 BEDS AT THE [facility] Last Admin: 12/25/16 18:03 Dose: 6.25 mg Enoxaparin Sodium (Lovenox) 40 mg SC DAILY COUNTS INCLUDE 234 BEDS AT THE [facility] Last Admin: 12/25/16 10:30 Dose: 40 mg Furosemide (Lasix) 20 mg PO DAILY COUNTS INCLUDE 234 BEDS AT THE [facility] Last Admin: 12/25/16 10:25 Dose: 20 mg Levothyroxine Sodium (Synthroid) 150 mcg PO DAILY@0630 COUNTS INCLUDE 234 BEDS AT THE [facility] Last Admin: 12/25/16 05:54 Dose: 150 mcg Lorazepam (Ativan) 0.5 mg PO BID PRN PRN Reason: Agitation Last Admin: 12/24/16 21:50 Dose: 0.5 mg Losartan Potassium (Cozaar) 25 mg PO DAILY COUNTS INCLUDE 234 BEDS AT THE [facility] Last Admin: 12/25/16 10:24 Dose: 25 mg Meclizine HCl (Antivert) 12.5 mg PO BID COUNTS INCLUDE 234 BEDS AT THE [facility] Last Admin: 12/25/16 18:03 Dose: 12.5 mg Nortriptyline HCl (Pamelor) 25 mg PO DAILY COUNTS INCLUDE 234 BEDS AT THE [facility] Last Admin: 12/24/16 13:56 Dose: 25 mg Pantoprazole Sodium (Protonix Ec Tab) 40 mg PO DAILY COUNTS INCLUDE 234 BEDS AT THE [facility] Last Admin: 12/25/16 10:29 Dose: 40 mg - Labs Labs: 12/25/16 07:23 12/25/16 07:23 PT 13.7 SECONDS (9.7-12.2) H 12/24/16 22:00 INR 1.2 11/16/17 22:00 APTT 36 SECONDS (21-34) H 12/24/16 22:00 - Constitutional Appears: Chronically Ill - Head Exam Head Exam: NORMAL INSPECTION - Eye Exam Eye Exam: Normal appearance - ENT Exam ENT Exam: Mucous Membranes Moist - Neck Exam Neck Exam: Full ROM - Respiratory Exam Respiratory Exam: Clear to Ausculation Bilateral, NORMAL BREATHING PATTERN - Cardiovascular Exam Cardiovascular Exam: REGULAR RHYTHM, +S1, +S2 - GI/Abdominal Exam GI & Abdominal Exam: Soft, Normal Bowel Sounds - Neurological Exam Neurological Exam: Abnormal Gait, Alert, Awake, CN II-XII Intact - Psychiatric Exam Psychiatric exam: Anxious Assessment and Plan (1) Ataxia Status: Acute (2) Dizziness Status: Acute (3) Gait abnormality Status: Acute (4) Anxiety Status: Chronic (5) Arthritis Status: Chronic (6) Hypothyroid Status: Chronic (7) Venous insufficiency Status: Chronic (8) Pre-syncope Status: Acute - Assessment and Plan (Free Text) Plan: Will follow cardiac w/u if wnl will dc in am
[2016-12-26] MEDS: Levothyroxine 150 MCG TAB PO SCH (06:28)
[2016-12-26 08:25] VITALS: BP 130/81; PULSE 80; RESP 18; TEMP 98.1; O2SAT 96
[2016-12-26] MEDS: Pantoprazole 40 mg EC Tab PO SCH (10:07)
[2016-12-26] MEDS: Enoxaparin 40 mg Syringe SC SCH (10:09)
--- NOTE | 2016-12-26 15:18 | CP.PCM.PN ---
Subjective - Date & Time of Evaluation Date of Evaluation: 12/26/16 Time of Evaluation: 15:18 - Subjective Subjective: PATIENT WAS ADMITTED FOR VERTIGO; AAOX 3 DENIES ANY DIZZINESS CHEST PAIN OR SOB ; NO SIGN OF DISTRESS NOTED Objective - Vital Signs/Intake and Output Vital Signs (last 24 hours): Temp Pulse Resp BP Pulse Ox 98.1 F 80 18 130/81 96 12/26/16 07:05 12/26/16 07:05 12/26/16 07:05 12/26/16 07:05 12/26/16 07:05 Intake and Output: 12/26/16 12/26/16 06:59 18:59 Intake Total 400 Balance 400 - Medications Medications: Current Medications Aspirin (Ecotrin) 81 mg PO DAILY [facility] Last Admin: 12/26/16 10:06 Dose: 81 mg Carvedilol (Coreg) 6.25 mg PO BID [facility] Last Admin: 12/26/16 10:07 Dose: 6.25 mg Enoxaparin Sodium (Lovenox) 40 mg SC DAILY [facility] Last Admin: 12/26/16 10:09 Dose: 40 mg Furosemide (Lasix) 20 mg PO DAILY [facility] Last Admin: 12/26/16 10:07 Dose: Not Given Levothyroxine Sodium (Synthroid) 150 mcg PO DAILY@0630 [facility] Last Admin: 12/26/16 06:28 Dose: 150 mcg Lorazepam (Ativan) 0.5 mg PO BID PRN PRN Reason: Agitation Last Admin: 12/24/16 21:50 Dose: 0.5 mg Losartan Potassium (Cozaar) 25 mg PO DAILY [facility] Last Admin: 12/26/16 10:06 Dose: 25 mg Meclizine HCl (Antivert) 12.5 mg PO BID [facility] Last Admin: 12/26/16 10:08 Dose: 12.5 mg Nortriptyline HCl (Pamelor) 25 mg PO HS [facility] Last Admin: 12/25/16 22:20 Dose: 25 mg Pantoprazole Sodium (Protonix Ec Tab) 40 mg PO DAILY [facility] Last Admin: 12/26/16 10:07 Dose: 40 mg - Labs Labs: 12/25/16 07:23 12/25/16 07:23 PT 13.7 SECONDS (9.7-12.2) H 12/24/16 22:00 INR 1.2 12/24/16 22:00 APTT 36 SECONDS (21-34) H 12/24/16 22:00 - Constitutional Appears: Well - Respiratory Exam Respiratory Exam: Clear to Ausculation Bilateral - Cardiovascular Exam Cardiovascular Exam: +S1, +S2 Assessment and Plan - Assessment and Plan (Free Text) Assessment: A/P PATIENT IS SEEN AND EXAMINED BY LAST REMODELER REPAIRER LUNG SOUND CLEAR HOLTER MONITOR REMOVE AND PATIENT NEED TO FOLLOW WITH DR YOON DISCUSS WITH DR DOYLE WHO CLEAR PATIENT FOR DC AND DR YOON AGREE WITH THE PLAN FOLLOW UP WITH DR RODAS IN A WEEK AT HIS OFFICE ---CALL HIS OFFICE FOR APPOINTMENT FOLLOW UP WITH DR YOON IN A WEEK FOR HOLTER MONITOR RESULT ----CALL HIS OFFICE FOR APPOINTMENT CONTINUE HOME MEDS PER MED REC NEW RX ANTIVERT 12.[address] RODAS FOR FURTHER ORDER OR QUESTION S CALL DR RODAS OR DR YOON OR GO TO THE NEAREST ER IF SYMPTOMS RETURN OR WORSENING DISCUSS WITH PATIENT WHO AGREE AND VERBALIZED UNDERSTANDING WITH THE DISCHARGE PLANING
--- NOTE | 2016-12-26 17:22 | CP.PCM.DIS ---
Provider - Provider Date of Admission: 12/25/16 18:25 Attending physician: Joe Calixto MD Time Spent in preparation of Discharge (in minutes): 10 Diagnosis - Discharge Diagnosis (1) Ataxia Status: Acute (2) Dizziness Status: Acute (3) Gait abnormality Status: Acute Priority: High (4) Anxiety Status: Chronic (5) Arthritis Status: Chronic (6) Hypothyroid Status: Chronic (7) Venous insufficiency Status: Chronic (8) Pre-syncope Status: Acute Hospital Course - Lab Results Lab Results: Most Recent Lab Values WBC 5.3 K/uL (4.8-10.8) 12/25/16 07:23 RBC 4.15 Mil/uL (3.80-5.20) 12/25/16 07:23 Hgb 12.7 g/dL (11.0-16.0) 12/25/16 07:23 Hct 37.4 % (34.0-47.0) 12/25/16 07:23 MCV 89.9 fL (81.0-99.0) 12/25/16 07:23 MCH 30.5 pg (27.0-31.0) 12/25/16 07:23 MCHC 33.9 g/dL (33.0-37.0) 12/25/16 07:23 RDW 14.8 % (11.5-14.5) H 12/25/16 07:23 Plt Count 207 K/uL (130-400) 12/25/16 07:23 MPV 8.2 fL (7.2-11.7) 12/25/16 07:23 Neut % (Auto) 63.1 % (50.0-75.0) 12/25/16 07:23 Lymph % (Auto) 28.2 % (20.0-40.0) 12/25/16 07:23 Chase % (Auto) 7.7 % (0.0-10.0) 12/25/16 07:23 Eos % (Auto) 0.6 % (0.0-4.0) 12/25/16 07:23 Baso % (Auto) 0.4 % (0.0-2.0) 12/25/16 07:23 Neut # 3.3 K/uL (1.8-7.0) 12/25/16 07:23 Lymph # 1.5 K/uL (1.0-4.3) 12/25/16 07:23 Chase # 0.4 K/uL (0.0-0.8) 12/25/16 07:23 Eos # 0.0 K/uL (0.0-0.7) 12/25/16 07:23 Baso # 0.0 K/uL (0.0-0.2) 12/25/16 07:23 PT 13.7 SECONDS (9.7-12.2) H 12/24/16 22:00 INR 1.2 12/24/16 22:00 APTT 36 SECONDS (21-34) H 12/24/16 22:00 D-Dimer, Quantitative 291 ng/mlDDU (0-243) H 12/24/16 22:00 Sodium 137 mmol/L (132-148) 12/25/16 07:23 Potassium 3.8 mmol/L (3.6-5.2) 12/25/16 07:23 Chloride 104 mmol/L (98-107) 12/25/16 07:23 Carbon Dioxide 24 mmol/L (22-30) 12/25/16 07:23 Anion Gap 13 (10-20) 12/25/16 07:23 BUN 14 mg/dL (7-17) 12/25/16 07:23 Creatinine 0.8 mg/dL (0.7-1.2) 12/25/16 07:23 Est GFR ( Amer) > 60 12/25/16 07:23 Est GFR (Non-Af Amer) > 60 12/25/16 07:23 Random Glucose 92 mg/dL (65-105) 12/25/16 07:23 Hemoglobin A1c 6.1 % (4.2-6.5) 12/24/16 19:56 Calcium 8.3 mg/dl (8.6-10.4) L 12/25/16 07:23 Phosphorus 3.7 mg/dL (2.5-4.5) 12/24/16 19:56 Magnesium 1.9 mg/dL (1.6-2.3) 12/24/16 19:56 Total Bilirubin 1.0 mg/dL (0.2-1.3) 12/24/16 09:24 AST 22 U/L (14-36) 12/24/16 09:24 ALT 30 U/L (9-52) 12/24/16 09:24 Alkaline Phosphatase 74 U/L (38-126) 12/24/16 09:24 Troponin I < 0.0120 ng/mL (0.00-0.120) 12/24/16 09:24 NT-Pro-B Natriuret Pep 150 pg/mL (0-900) 12/24/16 09:24 Total Protein 6.6 g/dL (6.3-8.3) 12/24/16 09:24 Albumin 4.1 g/dL (3.5-5.0) 12/24/16 09:24 Globulin 2.5 gm/dL (2.2-3.9) 12/24/16 09:24 Albumin/Globulin Ratio 1.6 (1.0-2.1) 12/24/16 09:24 Triglycerides 90 mg/dL (0-149) 12/24/16 19:56 Cholesterol 171 mg/dL (0-199) 12/24/16 19:56 LDL Cholesterol Direct 101 mg/dL (0-129) 12/24/16 19:56 HDL Cholesterol 64 mg/dL (30-70) 12/24/16 19:56 Vitamin B12 533 pg/mL (239-931) 12/24/16 19:56 25-OH Vitamin D Total 31.2 NG/ML (30.0-100.0) 12/24/16 19:56 Folate > 20.0 ng/mL 12/24/16 19:56 TSH 3rd Generation 2.35 mIU/L (0.46-4.68) 12/24/16 15:13 Urine Color Yellow (YELLOW) 12/24/16 12:18 Urine Clarity Clear (Clear) 12/24/16 12:18 Urine pH 7.0 (5.0-8.0) 12/24/16 12:18 Ur Specific Rolette 1.011 (1.003-1.030) 12/24/16 12:18 Urine Protein Negative mg/dL (NEGATIVE) 12/24/16 12:18 Urine Glucose (UA) Normal mg/dL (Normal) 12/24/16 12:18 Urine Ketones Negative mg/dL (NEGATIVE) 12/24/16 12:18 Urine Blood Negative (NEGATIVE) 12/24/16 12:18 Urine Nitrate Negative (NEGATIVE) 12/24/16 12:18 Urine Bilirubin Negative (NEGATIVE) 12/24/16 12:18 Urine Urobilinogen Normal mg/dL (0.2-1.0) 12/24/16 12:18 Ur Leukocyte Esterase Neg Irma/uL (Negative) 12/24/16 12:18 Urine WBC (Auto) 1 /hpf (0-5) 12/24/16 12:18 Ur Squamous Epith Cells 1 /hpf (0-5) 12/24/16 12:18 - Hospital Course Hospital Course: Patient presented with vertigo ataxia the symptoms resolved and she was dc home. F/U in my office next week Discharge Exam - Head Exam Head Exam: NORMAL INSPECTION Additional comments: PE as per PA note Discharge Plan - Follow Up Plan Condition: FAIR Disposition: HOME/ ROUTINE Instructions: Lorazepam (By mouth), Nortriptyline (By mouth), Aspirin (By mouth ), Meclizine (By mouth), Valsartan (By mouth), Carvedilol (By mouth), Pantoprazole (By mouth), Vertigo (DC), Weakness (GEN), Fall Prevention (DC) Additional Instructions: FOLLOW UP WITH DR CALIXTO IN A WEEK AT HIS OFFICE ---CALL HIS OFFICE FOR APPOINTMENT FOLLOW UP WITH DR FORBES IN A WEEK FOR HOLTER MONITOR RESULT ----CALL HIS OFFICE FOR APPOINTMENT CONTINUE HOME MEDS PER MED REC NEW RX ANTIVERT 12.[address] CALIXTO FOR FURTHER ORDER OR QUESTION S CALL DR CALIXTO OR DR FORBES OR GO TO THE NEAREST ER IF SYMPTOMS RETURN OR WORSENING Referrals: Joe Calixto MD [Staff Provider] - Elvis Forbes MD [Staff Provider] -
--- NOTE | 2016-12-27 13:24 | CARD ---
APPROVED REPORT EXAM: Two-dimensional and M-mode echocardiogram with Doppler and color Dopple with Bubble study Other Information Quality : GoodRhythm : INDICATION CVA/TIA 2D DIMENSIONS IVSd1.3 (0.7-1.1cm)LVDd3.8 (3.9-5.9cm) PWd1.4 (0.7-1.1cm)LVDs2.5 (2.5-4.0cm) FS (%) 32.7 %LVEF (%)61.9 (>50%) M-Mode DIMENSIONS Left Atrium (MM)3.58 (2.5-4.0cm)Aortic Root3.06 (2.2-3.7cm) Aortic Cusp Exc.2.06 (1.5-2.0cm) Mitral Valve MV E Rrjarqev65.2cm/sMV A Iouwvywz76.7cm/sE/A ratio0.6 TDI E/Lateral E'0.0E/Medial E'0.0 Tricuspid Valve TR Peak Momhvcsj892ia/sTR Peak Gr.[id number] LEFT VENTRICLE The left ventricle is normal size. There is normal left ventricular wall thickness. The left ventricular function is normal. The left ventricular ejection fraction is within the normal range. No regional wall motion abnormalities noted. Transmitral Doppler flow pattern is Grade I-abnormal relaxation pattern. No left ventricle thrombus noted on this study. There is no ventricular septal defect visualized. There is no left ventricular aneurysm. There is no mass noted in the left ventricle. RIGHT VENTRICLE The right ventricle is normal size. There is normal right ventricular wall thickness. The right ventricular systolic function is normal. ATRIA The left atrium size is normal. The right atrium size is normal. The interatrial septum is intact with no evidence for an atrial septal defect. AORTIC VALVE The aortic valve is normal in structure and function. No aortic regurgitation is present. There is no aortic valvular stenosis. There is no aortic valvular vegetation. MITRAL VALVE The mitral valve is normal in structure and function. There is no evidence of mitral valve prolapse. There is no mitral valve stenosis. There is no mitral valve regurgitation noted. TRICUSPID VALVE The tricuspid valve is normal in structure and function. There is mild tricuspid regurgitation. There is no tricuspid valve prolapse or vegetation. There is no tricuspid valve stenosis. PULMONIC VALVE The pulmonary valve is normal in structure and function. There is mild pulmonic valvular regurgitation. There is no pulmonic valvular stenosis. GREAT VESSELS The aortic root is normal in size. The ascending aorta is normal in size. The pulmonary artery is normal. The IVC is normal in size and collapses >50% with inspiration. PERICARDIAL EFFUSION The pericardium appears normal. There is no pleural effusion. <Conclusion> Transmitral Doppler flow pattern is Grade I-abnormal relaxation pattern. There is mild tricuspid regurgitation. There is mild pulmonic valvular regurgitation. The left ventricular ejection fraction is within the normal range.
== END 2016-12-26 16:59 | disposition home or self-care (01) | DRG 93 ==
LOC: C.ER 09:00 → C.9E 12:38 → C.6T 13:32 → C.9E 13:47 → C.6T 13:48 → OBSVTOIN 12-25 18:25
PROVIDERS: ADMIT Internal Medicine; ATTEND Internal Medicine
DX: R27.0 Ataxia, unspecified (principal); I11.0 Hypertensive heart disease with heart failure; I50.9 Heart failure, unspecified; J44.9 Chronic obstructive pulmonary disease, unspecified; R55 Syncope and collapse; E03.9 Hypothyroidism, unspecified; I25.10 Atherosclerotic heart disease of native coronary artery without angina pectoris; I87.2 Venous insufficiency (chronic) (peripheral); E78.5 Hyperlipidemia, unspecified; E78.00 Pure hypercholesterolemia, unspecified; F41.9 Anxiety disorder, unspecified; K21.9 Gastro-esophageal reflux disease without esophagitis; M19.90 Unspecified osteoarthritis, unspecified site; Z79.82 Long term (current) use of aspirin; Z79.899 Other long term (current) drug therapy; Z90.49 Acquired absence of other specified parts of digestive tract; Z91.041 Radiographic dye allergy status

== ENCOUNTER 2018-06-04 16:03 | Emergency (ER) | payer MEDICARE, OTHER ==
[2018-06-04 16:03] VITALS: BMI 31.8
[2018-06-04 16:17] VITALS: BP 126/82; PULSE 80; RESP 18; TEMP 97.6; O2SAT 97
--- NOTE | 2018-06-04 18:07 | RAD ---
PROCEDURE: Radiographs of the pelvis and bilateral hips HISTORY: pain COMPARISON: None. TECHNIQUE: 2 views obtained. FINDINGS: BONES: Pelvis: Unremarkable. Right hip:Unremarkable. Left hip:Unremarkable. JOINTS: Right hip: Mild osteoarthritis, axial. Left hip: Mild osteoarthritis, axial Sacroiliac Joints: Unremarkable. Pubic symphysis: Unremarkable. SOFT TISSUES: Normal. OTHER FINDINGS: None. IMPRESSION: Osteoarthritis of both hips.
[2018-06-04] MEDS ORDERED: Lidocaine 5% Patch TD STA (18:31)
--- NOTE | 2018-06-04 18:33 | C.PDOC ---
History Of Present Illness 77 y/o female pt presents to the ER c/o b/l hips pain left>right. Pt reports she had appointment with pain management who injected on her right hip. Pt notes her pain got worse this morning. Pt next appointment with pain management next week. Pt notes she also called Dr. Norwood who told her to take Tramadol, pt complied but no relief. Pt was told to com get XR. Pt's buffer chrome instructed pt not to take any NSAID medications. Pt denies weakness, numbness and tingling. Time Seen by Provider: 06/04/18 17:19 Chief Complaint (Nursing): Hip Pain History Per: Patient History/Exam Limitations: no limitations Onset/Duration Of Symptoms: Hrs Current Symptoms Are (Timing): Still Present Past Medical History Reviewed: Historical Data, Nursing Documentation, Vital Signs Vital Signs: Last Vital Signs Temp 97.6 F 06/04/18 16:14 Pulse 80 06/04/18 16:14 Resp 18 06/04/18 16:14 BP 126/82 06/04/18 16:14 Pulse Ox 97 06/04/18 16:14 - Medical History PMH: Anxiety, Arthritis, Asthma, Bronchitis, CHF, Gastritis, HTN, Hypercholeste rolemia, Hypothyroidism, Peripheral Edema Surgical History: Appendectomy - [facility] Procedures ESOPHAGOGASTRODUODENOSCOPY [EGD] W/CLOSED BIOPSY (07/26/14) EXTRACTION OF TOE NAIL, EXTERNAL APPROACH (10/24/15) Family History: States: Unknown Family Hx - Social History Hx Tobacco Use: No Hx Alcohol Use: No Hx Substance Use: No - Immunization History Hx Tetanus Toxoid Vaccination: No Hx Influenza Vaccination: No Hx Pneumococcal Vaccination: No Review Of Systems Except As Marked, All Systems Reviewed And Found Negative. Musculoskeletal: Positive for: Other (b/l hip pain left>right ) Neurological: Negative for: Weakness, Numbness, Other (tingling) Physical Exam - Physical Exam Appears: Non-toxic, No Acute Distress Skin: Warm, Dry Head: Normacephalic Back: Paraspinal Tenderness Extremity: Other (left hip tenderness) Neurological/Psych: Oriented x3, Normal Speech, Normal Cognition ED Course And Treatment O2 Sat by Pulse Oximetry: 97 (RA) Pulse Ox Interpretation: Normal - Other Rad LS spine XR X-Ray: Interpreted by Me Interpretation: DJD left hip X-Ray: Read By Radiologist Interpretation: Accession No. : [id number]. Patient Name / ID : HOMERO SEGURA / [id number]. Exam Date : 06/04/2018 17:31:59 ( Approved ). Study Comment : Sex / Age : F / [id number]. Creator : Arslan Mcmillan MD. Dictator : Arslan Mcmillan MD. Drapery Estimator : Skein Spooler : Arslan Mcmillan MD. Approver2 : Report Date : 06/04/2018 18:03:50. My Comment : . PROCEDURE: Radiographs of the pelvis and bilateral hips. HISTORY: pain. COMPARISON: None. TECHNIQUE: 2 views obtained. FINDINGS: BONES: Pelvis: Unremarkable. Right hip:Unremarkable. Left hip:Unremarkable. JOINTS: Right hip: Mild osteoarthritis, axial. Left hip: Mild osteoarthritis, axial. Sacroiliac Joints: Unremarkable. Pubic symphysis: Unremarkable. SOFT TISSUES: Normal. OTHER FINDINGS: None. IMPRESSION: Osteoarthritis of both hips. Progress Note: plans: --left hip XR. --LS spine XR. --lidocaine patch. On re-evaluation patient is ambulatory w/o neuro deficit. Patient's son is at the bedside. Patient is stable to be d/c home with PMD and Pain management follow up. Disposition - Disposition Disposition: HOME/ ROUTINE Disposition Time: 18:32 Condition: STABLE Additional Instructions: Follow up with PMD and fire prevention specialist within 2-3 days. Return to ED if feel worse. Prescriptions: Lidocaine 5% [Lidoderm] 1 patch TP DAILY #30 patch Instructions: Hip Pain in Older People Forms: [facility] (Beninese) - Clinical Impression Clinical Impression: Hip pain - PA / ENVIRONMENTAL EPIDEMIOLOGIST / Resident Statement JOSH has reviewed & agrees with the documentation as recorded. - Scribe Statement The provider has reviewed the documentation as recorded by the Cookie Denis Do All medical record entries made by the Scribe were at my direction and persona lly dictated by me. I have reviewed the chart and agree that the record accurately reflects my personal performance of the history, physical exam, medical decision making, and the department course for this patient. I have also personally directed, reviewed, and agree with the discharge instructions and disposition.
[2018-06-04] MEDS ORDERED: Lidocaine 5% Patch TD ONE (18:39)
--- NOTE | 2018-06-05 10:54 | RAD ---
Date of service: 06/04/2018 PROCEDURE: Radiographs of the Lumbar Spine. HISTORY: pain COMPARISON: No prior. TECHNIQUE: Four views obtained. FINDINGS: BONES: The vertebral bodies are maintained in height. Normal vertebral alignment is maintained. DISC SPACES: There is narrowing of the T12-L1 and of the L5-S1 intervertebral disc spaces consistent with degenerative disc disease. The remaining intervertebral disc spaces are maintained in height. OTHER FINDINGS: None. IMPRESSION: Degenerative disc disease T12-L1 and L5-S1. No fracture/listhesis.
== END 2018-06-04 18:39 | disposition home or self-care (01) ==
LOC: C.ER 16:03
DX: M25.552 Pain in left hip (principal); M25.551 Pain in right hip; E03.9 Hypothyroidism, unspecified; E78.00 Pure hypercholesterolemia, unspecified; I50.9 Heart failure, unspecified; I10 Essential (primary) hypertension